=== PATIENT | male | born 1960 ===

== ENCOUNTER 2023-02-08 11:28 | Day surgery (SDC) | payer BC, SELFPAY ==
--- NOTE | 2023-02-08 | PATH_ITS ---
[facility] Accession Number: [id number] No. of containers..01 Tissue . 01 Material submitted: . colon - SIGMOID POLYPS . 01 Diagnosis: Sigmoid Colon Polyps, Biopsy: Tubular adenoma. Hyperplastic polyp. [facility] 02/15/2023 1508 Local . 01 Electronically signed: . Latesha Alvarez MD, Pathologist NPI- [id number] . 01 Gross description: . SIGMOID POLYPS: Received in formalin is 2 fragment(s) of [place], soft tissue measuring 1.1 x 0.6 x 0.2 cm to 0.5 x 0.3 x 0.2 cm submitted entirely in 1 cassette(s) /AAY 02/09/2023 0512 Local . 01 Pathologist provided ICD-10: D12.5 . 01 CPT . 004198 Specimen Comment: A courtesy copy of this report has been sent to [phone] Performed at: 01 [facility] [address] [place] [address] [address] [facility], [place], [place] [id number] MD Home Talley MD Phone: [phone]
[2023-02-08 11:49] VITALS: BMI 36.5
[2023-02-08 11:54] VITALS: BP 146/84; PULSE 52; RESP 17; TEMP 35.9; O2SAT 99
[2023-02-08] MEDS: LACTATED RINGERS 1,000 ML 42 ML IV (11:59)
--- NOTE | 2023-02-08 12:36 | PM.HP.1 ---
History of Present Illness History of Present Illness Date Patient Seen: 02/08/23 Time Patient Seen: 12:36 Chief complaint: Colonoscopy Narrative: Aaron is a 63-year-old man who is here for colonoscopy. His last 1 was over 10 years ago and he believes no polyps were found. He has no known family history of colon cancer [facility] Social History household members: spouse Smoking Status: Never smoker alcohol intake: current Meds Home Medications and Allergies Home Medications Medication Instructions Recorded Confirmed Type sodium,potassium,mag sulfates 17.5 See Rx Instructions PO .COMPLEX 12/29/22 02/08/23 Rx gram-3.13 gram-1.6 gram oral soln #354 mL (Suprep Bowel Prep Kit) Allergies Allergy/AdvReac Type Severity Reaction Status Date / Time pollen extracts Allergy Mild Verified 02/08/23 11:47 shrimp AdvReac Mild Swelling Verified 02/08/23 11:47 of Lip/Tongue/Throat Exam Vital Signs (past 8 hours): - 02/08/23 11:54 Temperature 96.6 F L Pulse Rate 52 L Respiratory Rate 17 Blood Pressure 146/84 H Pulse Oximetry 99 Oxygen Delivery Method Room Air Oxygen Delivery Method Room Air Const General: No acute distress Assessment & Plan Assessment and plan (1) Colon cancer screening: Status: Acute Plan We reviewed the risks and benefits of colonoscopy for colon cancer screening and he would like to proceed.
--- NOTE | 2023-02-08 13:21 | PM.OP.COLON ---
Operative Date/Time/Diagnoses Date of procedure: 02/08/23 Time of procedure: 13:21 Pre-op diagnosis: Colon cancer screening Post-op diagnosis: same Procedure & Clinicians Study performed: Colonoscopy Same procedure as scheduled: Yes Surgeon: Baljit Anand Procedure Notes Procedure in detail: Surgeon: Baljit Anand MD Anesthesia: Polly Machuca CRNA Procedure: The patient was brought to the endoscopy suite, placed in left lateral decubitus position. The patient was connected to monitoring devices. A time-out was performed. Sedation was administered. Once the patient was adequately sedated, a digital rectal exam was performed and was normal. The scope was then inserted and advanced to the cecum where the appendiceal orifice was identified and photographed. The scope was then slowly withdrawn over greater than 6 minutes. The mucosa was thoroughly inspected. There was sigmoid diverticulosis. There were 2 3 mm polyps in the sigmoid colon removed with cold snare. The scope was retroflexed in the rectum. No other abnormalities were seen. The scope was straightened and removed. The patient was awakened and brought to recovery. Scope withdrawal time: 13 minutes Sedation time: 26 minutes EBL: 2 mL Findings: Sigmoid diverticulosis and 2 3 mm polyps in the sigmoid colon Post-procedure Disposition: PACU
[2023-02-08 13:23] VITALS: BP 131/78; PULSE 52; RESP 12; TEMP 36.6; O2SAT 97
[2023-02-08 13:28] VITALS: BP 96/68; PULSE 57; RESP 16; O2SAT 100
[2023-02-08 13:34] VITALS: BP 128/66; PULSE 60; RESP 20; TEMP 36.6; O2SAT 100
== END 2023-02-08 13:45 | disposition home or self-care (01) ==
PROVIDERS: PCP Family Medicine; Referring Provider Surgery; Visit Provider Surgery
PROC: 0DJD8ZZ Inspection of Lower Intestinal Tract, Via Natural or Artificial Opening Endoscopic (ICD-10-PCS; CPT 45378; principal; 2023-02-08 12:45)
DX: Z12.11 Encounter for screening for malignant neoplasm of colon (principal); K57.30 Diverticulosis of large intestine without perforation or abscess without bleeding; D12.5 Benign neoplasm of sigmoid colon
CPT/HCPCS: 45385; J2704